=== PATIENT | female | born 1965 | race Caucasian/White ===

== ENCOUNTER 2017-05-26 12:54 | Emergency (ER) | payer MEDICAID ==
[~2017-05-26] VITALS: Ht 152.4 cm; Wt 72.6 kg
[2017-05-26 14:13] VITALS: BP 152/82
== END 2017-05-26 15:13 | disposition home or self-care (01) ==
LOC: ER 12:59
DX: S80.01XA Contusion of right knee, initial encounter (principal); M17.11 Unilateral primary osteoarthritis, right knee; W01.0XXA Fall on same level from slipping, tripping and stumbling without subsequent striking against object, initial encounter; Y93.01 Activity, walking, marching and hiking; Y92.89 Other specified places as the place of occurrence of the external cause; Y99.8 Other external cause status
CPT/HCPCS: 73562

== ENCOUNTER 2018-07-22 10:15 | Emergency (ER) | payer MEDICAID ==
[~2018-07-22] VITALS: Ht 152.4 cm; Wt 69.9 kg
[2018-07-22 10:23] VITALS: BP 136/74
== END 2018-07-22 11:42 | disposition home or self-care (01) ==
LOC: ER 10:15
DX: S76.012A Strain of muscle, fascia and tendon of left hip, initial encounter (principal); J44.9 Chronic obstructive pulmonary disease, unspecified; E78.5 Hyperlipidemia, unspecified; W18.39XA Other fall on same level, initial encounter; Y93.89 Activity, other specified; Y99.8 Other external cause status; Y92.524 Gas station as the place of occurrence of the external cause
CPT/HCPCS: 73502

== ENCOUNTER 2020-07-03 14:23 | Emergency (ER) | payer MEDICAID ==
[~2020-07-03] VITALS: Ht 152.4 cm; Wt 72.6 kg
[2020-07-03] MEDS ORDERED: ACETAMINOPHEN 325 MG TAB PO ONE (15:00)
[2020-07-03 15:24] LABS: Basophils # (auto) 0 10 ^3/uL (0-0.2); Basophils % (auto) 0.6 % (0.0-2.0); Eosinophils # (auto) 0.1 10 ^3/uL (0-0.8); Hemoglobin 13.9 g/dL (12.2-16.2); Lymphocytes # (auto) 0.6 10 ^3/uL (0.4-5.4); Lymphocytes % (auto) 11.1 % (10.0-50.0); Mean Corpuscular Hemoglobin 32.7 pg (28.0-32.0); Mean Corpuscular Hgb Conc. 34.8 g/dL (32.0-36.0); Mean Corpuscular Volume 93.8 fL (80.0-100.0); Monocytes # (auto) 0.4 10 ^3/uL (0-1.3); Monocytes % (auto) 6.7 % (0.0-12.0); Neutrophils # (auto) 4.7 10 ^3/uL (1.6-8.6); Neutrophils % (auto) 80.6 % (37.0-80.0); Platelet Count (auto) 151 10^3/uL (140-450); Red Blood Cells 4.27 10^6/uL (4.0-5.20); Red Cell Distribution Width 13.7 % (11.8-14.3); White Blood Cell 5.8 10^3/uL (4.4-10.8)
[2020-07-03 15:25] LABS: Urine Bacteria NONE SEEN /hpf (None Seen); Urine Blood TRACE /uL (Negative); Urine Mucus FEW (None Seen); Urine WBC 14 /hpf (0 - 5)
[2020-07-03 15:34] LABS: Albumin 3.6 g/dL (3.4-5.0); Calcium 8.9 mg/dL (8.5-10.1); Potassium 3.7 mmol/L (3.5-5.1)
[2020-07-03 15:39] LABS: BUN/Creatinine Ratio 15.5; Bilirubin, Total 0.5 mg/dL (0.2-1.0); Total Protein 7.3 g/dL (6.4-8.2)
[2020-07-03 15:45] LABS: INR 0.96 (0.9-1.15); Partial Thromboplastin Time 25.5 sec (23.0-31.2)
[2020-07-03] MEDS ORDERED: cefTRIAXone 1GM/50ML D5W 50 ML IV ONE (16:00)
[2020-07-03] MEDS ORDERED: SODIUM CHLORIDE 0.9% 1,000 ML IV ONE (16:00)
[2020-07-03 16:50] VITALS: BP 128/59
[2020-07-03] MEDS ORDERED: CIPR-173 PO (17:21)
== END 2020-07-03 17:43 | disposition home or self-care (01) ==
LOC: ER 14:25
DX: N30.00 Acute cystitis without hematuria (principal); M79.10 Myalgia, unspecified site; J44.9 Chronic obstructive pulmonary disease, unspecified; F17.210 Nicotine dependence, cigarettes, uncomplicated; Z79.899 Other long term (current) drug therapy; Z20.822 Contact with and (suspected) exposure to COVID-19
CPT/HCPCS: 36415; 71045; 80053; 81001; 83735; 85025; 85610; 85730; 87426; 96365; 99284; J0696; J7030

== ENCOUNTER 2020-08-27 14:05 | Emergency (ER) | payer MEDICAID ==
[~2020-08-27] VITALS: Ht 152.4 cm; Wt 72.6 kg
[~2020-08-27 14:05] MED LIST: CIPR-173 PO
[2020-08-27 15:39] VITALS: BP 127/57
== END 2020-08-27 17:31 | disposition left against medical advice (07) ==
LOC: ER 14:05
DX: M54.2 Cervicalgia (principal); M54.9 Dorsalgia, unspecified; Z53.21 Procedure and treatment not carried out due to patient leaving prior to being seen by health care provider; W01.0XXA Fall on same level from slipping, tripping and stumbling without subsequent striking against object, initial encounter; Y93.89 Activity, other specified; Y92.89 Other specified places as the place of occurrence of the external cause; Y99.8 Other external cause status